=== PATIENT | male | born 2000 | race Caucasian/White ===

== ENCOUNTER 2023-07-26 15:32 | Emergency (ER) | payer OTHER, SELFPAY ==
[2023-07-26 15:40] VITALS: BP 146/58; PULSE 65; RESP 18; TEMP 36.5; O2SAT 99
--- NOTE | 2023-07-26 16:50 | ED.GENADUL_ITS ---
HPI General Stated Complaint: Nk/Back Pain Mode of arrival: ambulatory. ESTRELLA: 4 Date/Time Provider Initiated Documentation: 07/26/23 16:45. Limitations to Documentation: no limitations. Information obtained by: patient, RN notes reviewed and old records reviewed. HPI Narrative: 23-year-old male presents to the ER with a chief complaint of midthoracic back pain since February which has been getting worse over the last few days. He reports he does lift heavy weights. Denies any radiation numbness tingling or problems urinating or any other concerns. He reports that he has pain with reverse fly movement. Denies any falls. He does have some midline tenderness and right paraspinous tenderness with palpation. He reports sharp shooting pains that radiate upwards. He has been taking ibuprofen with little to no relief. Related Data Home Medications Medication Instructions Recorded Confirmed Unknown [No Known Home Meds] 07/26/23 07/26/23 Allergies Allergy/AdvReac Type Severity Reaction Status Date / Time acetaminophen [From Tylenol] Allergy Intermediate Swelling/Ed Unverified 07/26/23 15:43 ilana Review of Systems Musculoskeletal Musculoskeletal: Reports as per HPI and Reports back pain PFSH All Active Problems (Updated 07/26/23 @ 17:37 by Gela Alicea NP) Strain of thoracic spine (Acute) Social History Smoking risk assessment performed?: No Alcohol Intake: current Alcohol Intake frequency: holidays/special occasions only Drug use: Never Substance use type: does not use Housing: apartment Do you feel safe at home: Yes Do you feel safe in your relationship?: Yes Exam Narrative Exam Narrative: Constitutional: Alert and oriented x3. Appears stated age. Normal body habitus. Head: Normocephalic, no trauma. Chest: RRR, Normal S1, S2, distal pulses intact. Resp: Lungs clear to auscultation bilaterally, no wheezes, rales, or rhonchi. Abdomen: Soft, non-distended, Normoactive bowel sounds all 4 quads. Musculoskeletal: Normal gait, 5/5 strength to all four extremities. Right mid thoracic paraspinous tenderness and mid thoracic tenderness no crepitus step- off. Skin: No suspicious rashes or lesions. Capillary refill less than 2 sec. Neurologic: Cranial nerves II-XII intact. Alert and oriented x 3. Motor: No deficits noted. Sensory: Intact bilaterally all 4 extremities. Hematologic/Lymphatic: No ecchymosis, no lymphadenopathy. Course Vital Signs Vital signs: Vital Signs Temperature 36.5 C 07/26/23 15:40 Pulse 65 07/26/23 15:40 Respiratory Rate 18 07/26/23 15:40 Blood Pressure 146/58 H 07/26/23 15:40 Pulse Oximetry 99 07/26/23 15:40 Temperature 36.5 C 07/26/23 15:40 Temperature Source Temporal Artery Scan 07/26/23 15:40 Pulse 65 07/26/23 15:40 Respiratory Rate 18 07/26/23 15:40 Respiratory Effort Normal, Non-Labored 07/26/23 16:36 Blood Pressure 146/58 H 07/26/23 15:40 Blood Pressure Position Sitting 07/26/23 15:40 Pulse Oximetry 99 07/26/23 15:40 Oxygen Delivery Method Room Air 07/26/23 15:40 Oxygen Flow Rate 0 07/26/23 15:40 Medical Decision Making 23-year-old male presents to the ER with a chief complaint of midthoracic back pain since February which has been getting worse over the last few days. He reports he does lift heavy weights. Denies any radiation numbness tingling or problems urinating or any other concerns. He reports that he has pain with reverse fly movement. Denies any falls. He does have some midline tenderness and right paraspinous tenderness with palpation. He reports sharp shooting pains that radiate upwards. He has been taking ibuprofen with little to no relief. X-ray T-spine ordered, Flexeril to go and a lidocaine patch. Will refer to physical therapy and PCP. Discussed x-ray results with patient verbalized understanding. Patient was given 3 tablets of Flexeril to go and a physical therapy referral. He verbalized understanding. This text was generated using [employer] system, please disregard any oddities of phrase or misspellings. Imaging Data Radiologic Study: Imaging: X-Ray Radiologist's impression: EXAM: XR THORACIC SPINE COMPLETE CLINICAL HISTORY: Back pain,. TECHNIQUE: 2D digital imaging was performed of the thoracic spine. Four views were obtained. AP, swimmer's and lateral views were obtained. COMPARISON: No exams were available for comparison FINDINGS: BONES: There is no fracture or destructive lesion. The vertebral bodies and posterior elements are unremarkable. DISKS:There is a mild right convex curvature of the thoracic spine centered at T4-5. Interverebral disc spaces are maintained. SOFT TISSUE: Visualized lungs are clear. IMPRESSION: No acute fracture or subluxation. Quality:SDOH Health Related Social Needs: No Data to Display Discharge Plan Disposition Patient Disposition: Home Condition: Stable Discharge Details Clinical Impression: Strain of thoracic spine Primary Care Provider: Unknown,Unknown ED Provider: Gela Alicea Home Meds and New Rx's Prescriptions: No Action No Known Home Meds Discharge Instructions Instructions: Lower Back Exercises (ED) Additional Instructions: The x-ray shows you have a mild curvature of your thoracic spine at T4-T5 level which may explain your pain. Please follow-up as directed with physical therapy. You may use the lidocaine patches which she can get [id number]. Apply topical diclofenac or Voltaren or IcyHot. Alternate ice and heat. Please take Tylenol or Ibuprofen with food every 4-6 hours as needed for pain and swelling. Follow up with primary care provider in 3-5 days. Return to ED sooner if any worsening or concerns. Increase oral fluids. Please take the Muscle relaxer as needed before bed. Stand Alone Forms: Physical Therapy Referral Referrals: Jesus Forrest [ NON-[facility] STAFF PHYSICIAN] - 1 week Discharge Data Discharge Date/Time-TO BE ENTERED AT DEPARTURE: 07/26/23 17:55
[2023-07-26] MEDS: Cyclobenzaprine 10 MG TAB, 3 TABS/BTL PO (16:57)
[2023-07-26] MEDS: Lidocaine 5% Patch 1 PATCH TP (16:58)
--- NOTE | 2023-07-26 17:07 | DI.RAD_ITS ---
Exam(s) XR THORACIC SPINE COMPLETE EXAM: XR THORACIC SPINE COMPLETE CLINICAL HISTORY: Back pain,. TECHNIQUE: 2D digital imaging was performed of the thoracic spine. Four views were obtained. AP, s ankur's and lateral views were obtained. COMPARISON: No exams were available for comparison FINDINGS: BONES: There is no fracture or destructive lesion. The vertebral bodies and posterior elements are un remarkable. DISKS:There is a mild right convex curvature of the thoracic spine centered at T4-5. Interverebral di sc spaces are maintained. SOFT TISSUE: Visualized lungs are clear. IMPRESSION: No acute fracture or subluxation. DATA REPOSITORY: RADIATION DOSE DELIVERED:
== END 2023-07-26 17:55 | disposition home or self-care (01) ==
PROVIDERS: Emergency Provider Registered Nurse Emergency
DX: S29.012A Strain of muscle and tendon of back wall of thorax, initial encounter (principal); X50.0XXA Overexertion from strenuous movement or load, initial encounter; Y93.89 Activity, other specified
CPT/HCPCS: 99283; 72072

== ENCOUNTER 2025-01-02 03:14 | Outpatient (CLI) | payer OTHER, SELFPAY ==
[2025-01-02 17:02] LABS: Hemoglobin A1C 5.4 % (<5.7)
[2025-01-02 17:29] LABS: Calculated LDL 126 mg/dL (<100); Cholesterol 192 mg/dL (<200); HDL Cholesterol 55 mg/dL (>or=40); Triglyceride 58 mg/dL (<150)
== END 2025-01-02 03:15 | disposition home or self-care (01) ==
PROVIDERS: PCP Nurse Practitioner Family; Visit Provider Nurse Practitioner Family
DX: Z13.1 Encounter for screening for diabetes mellitus (principal); Z13.220 Encounter for screening for lipoid disorders
CPT/HCPCS: 36415; 80061; 83036